=== PATIENT | female | born 1930 | race American Indian/Alaskan Native ===

== ENCOUNTER 2016-05-27 11:53 | Day surgery (SDC) | payer MEDICARE ==
[~2016-05-27 11:53] MED LIST: IOPIDINE OS ONE; MYDRIACYL OS ONE; NEOFRIN OS ONE
[2016-05-27] MEDS ORDERED: NEOFRIN ONE (12:04)
[2016-05-27] MEDS ORDERED: IOPIDINE ONE (12:05)
[2016-05-27] MEDS ORDERED: NEOFRIN OS ONE (12:35)
[2016-05-27] MEDS ORDERED: IOPIDINE OS ONE (12:35)
[2016-05-27] MEDS ORDERED: MYDRIACYL OS ONE (12:35)
[2016-05-27 13:21] VITALS: BP 154/88
== END 2016-05-27 13:26 | disposition home or self-care (01) ==
LOC: OR 11:53
PROVIDERS: ATTEND Specialist
DX: H26.492 Other secondary cataract, left eye (principal)